=== PATIENT | female | born 1970 ===

== ENCOUNTER 2022-12-21 05:35 | Day surgery (SDC) | payer OTHER ==
[2022-12-20 10:20] VITALS: BMI 31.4
[2022-12-21] MEDS ORDERED: LIDOCAINE HCL 2% JELLY 10 ML CARTRIDGE ONE (07:15)
[2022-12-21] MEDS ORDERED: FENTANYL CITRATE/PF 50 MCG/ML VIAL ONE (12:32)
[2022-12-21 13:43] VITALS: TEMP 97.6
[2022-12-21 14:02] VITALS: BP 104/56; PULSE 65; RESP 18
== END 2022-12-21 14:23 | disposition home or self-care (01) ==
LOC: JASU-ENDO 05:35
PROVIDERS: ATTEND Internal Medicine Gastroenterology
PROC: 0DBP8ZX Excision of Rectum, Via Natural or Artificial Opening Endoscopic, Diagnostic (ICD-10-PCS; principal; 2022-12-21 12:00)
DX: Z12.11 Encounter for screening for malignant neoplasm of colon (principal); K62.1 Rectal polyp; K62.89 Other specified diseases of anus and rectum; K64.4 Residual hemorrhoidal skin tags; K57.30 Diverticulosis of large intestine without perforation or abscess without bleeding
CPT/HCPCS: 88305-TC